=== PATIENT | male | born 1980 | race Caucasian/White ===

== ENCOUNTER 2023-10-28 06:38 | Outpatient (CLI) | payer BC, SELFPAY ==
--- NOTE | ~2023-10-28 | MR_ITS ---
MRI of the left shoulder Technique: Axial proton-density fat-sat images, coronal proton density fat-sat and T2 fat-sat images, and sagittal T1-weighted and T2 fat-sat images were acquired. Clinical History: Pain Findings: No significant AC joint degenerative change. Coracoclavicular, coracoacromial, and coracohu meral ligaments are intact. Supraspinatus and infraspinatus tendons are intact, without partial or full-thickness tear. Subscapul krystyna tendon is intact, with mild tendinosis. Tendon of long head of the biceps is intact. No labral tear evident. Inferior glenohumeral ligament intact. No degenerative change or effusion of the glenohumeral joint. No fluid distention of the subacromial/subdeltoid bursa. No muscle atrophy or edema. Impression: Mild subscapularis tendinosis, otherwise essentially unremarkable exam. Reviewed, dictated and finalized at [facility]. Impression: Mild subscapularis tendinosis, otherwise essentially unremarkable exam.
--- NOTE | ~2023-10-28 | XR_ITS ---
Left Shoulder Technique: AP and scapular Y views were obtained. Clinical History: Pain Findings: No fracture or dislocation is seen. Osseous alignment is anatomic. The glenohumeral and acr omioclavicular joint spaces are preserved. Soft tissues are unremarkable, aside from small calcified left hilar lymph nodes. Impression: Unremarkable left shoulder radiographs. Reviewed, dictated and finalized at [facility]. Impression: Unremarkable left shoulder radiographs.
== END 2023-10-28 06:39 | disposition home or self-care (01) ==
PROVIDERS: PCP Family Medicine; Visit Provider Chiropractor Rehabilitation
DX: M67.814 Other specified disorders of tendon, left shoulder (principal)
CPT/HCPCS: 73030; 73221